=== PATIENT | female | born 1960 | race Caucasian/White ===

== ENCOUNTER → 2020-02-24 | Outpatient (CLI) | payer OTHER, MEDICAID ==
[~2020-02-24] MED LIST: ALBU83IN INH; ASPI81CH2 PO; ATOR40TA75 PO; CLOP75TA2 PO; ENTR1TAB PO; FARX1TAB3 PO; FURO80TA2 PO; GLIP5TAB8 PO; INCR1INH IN; K-TA10TA2 PO; MAGN400T2 PO; METO1TAB32 PO; NITR0.4S14 SL; OXYB5TAB10 PO; PANT40TA29 PO; PRED10PA2 PO; PROAAER10 INH; SYMB16INH INH; SYNT100T PO; VENL75TA2 PO
--- NOTE | 2020-04-12 09:30 | REP ---
RIGHT KNEE SERIES HISTORY: Pain with popping. TECHNIQUE: Five views of the right knee performed. FINDINGS: There is no acute fracture or dislocation. There is mild lateral joint space narrowing with subchondral sclerosis and mild spurring along the lateral joint margin. The patellofemoral joint appears unremarkable. There are mild vascular calcifications posteriorly. There is a [id number] joint effusion. IMPRESSION: Mild degenerative changes lateral joint compartment. [id number]-rk-[id number] joint effusion. MTDD
== END ==
LOC: M RAD 14:54
PROVIDERS: ATTEND Physician Assistant
DX: M25.461 Effusion, right knee (principal); M25.561 Pain in right knee
CPT/HCPCS: 73564; G0463

== ENCOUNTER → 2020-03-05 | Outpatient (REF) | payer MEDICARE, OTHER ==
[2020-03-05 19:38] LABS: APPEARANCE, URINE HAZY (CLEAR); BACTERIA, URINE AUTO 1+ (NEGATIVE); BILIRUBIN, URINE AUTO NEGATIVE (NEGATIVE); BLOOD, URINE BLOOD NEGATIVE (NEGATIVE); COLOR, URINE YELLOW (YELLOW); GLUCOSE, URINE (UA) AUTO 3+ mg/dL (NEGATIVE); KETONE, URINE AUTO TRACE mg/dL (NEGATIVE); LEUKOCYTE ESTERASE, URINE AUTO 1+ (NEGATIVE); NITRITE, URINE AUTO NEGATIVE (NEGATIVE); PROTEIN, URINE AUTO NEGATIVE (NEGATIVE); RBC, URINE AUTO 2 /HPF (0-3); SPECIFIC GRAVITY URINE AUTO 1.024 (1.002-1.035); SQUAMOUS EPITHELIAL CELL UR AU 5 /HPF (0-6); UROBILINOGEN, URINE AUTO 0.2 mg/dL (0.0-2.0); WBC, URINE AUTO 6 /HPF (0-3)
== END ==
LOC: M LAB REF 17:51
PROVIDERS: ATTEND Nurse Practitioner Family
DX: N39.0 Urinary tract infection, site not specified (principal)

== ENCOUNTER → 2020-04-03 | Outpatient (CLI) | payer MEDICARE, OTHER | LOC: M LABSMTC 08:18 | PROVIDERS: ATTEND Anesthesiology | DX: Z01.812 Encounter for preprocedural laboratory examination (principal); Z20.828 Contact with and (suspected) exposure to other viral communicable diseases | CPT/HCPCS: C9803; U0003 ==

== ENCOUNTER → 2020-04-08 | Day surgery (SDC) | payer OTHER, MEDICAID ==
[~2020-04-08] VITALS: Ht 165.1 cm; Wt 71.7 kg
[~2020-04-08] MED LIST changes: +CONRAY-60 60% 50ML VIAL (Q9961) As Ordered ONE; +LIDOCAINE 2% 100MG/5ML SDV (FOR ANES.) As Ordered ONE; +LR 1,000 ML IV ONE; +MIDAZOLAM INJ 2MG/2ML VIAL (J2250 PER 1MG) As Ordered ONE; +ONDANSETRON 4MG/2ML VIAL As Ordered ONE; +ceFAZolin 2 GM/D5W 50 ML IV BAG (J0690 PER 500MG) As Ordered ONE; +ceFAZolin SOD 2 GM in IV 1 EA IV ONE; +dexameTHASONE 4 MG/ML 1ML VIAL (J1100 PER 1MG) As Ordered ONE; +fentaNYL 100 MCG/2 ML INJECTION (J3010) As Ordered ONE; +propofoL 200 MG/20 ML VIAL As Ordered ONE
== END | disposition home or self-care (01) ==
LOC: M SDC 06:05
PROVIDERS: ATTEND Urology
DX: N20.0 Calculus of kidney (principal); Z53.09 Procedure and treatment not carried out because of other contraindication; R42 Dizziness and giddiness; Z91.81 History of falling
CPT/HCPCS: J1100; J2250; J2405; J3010; Q9961

== ENCOUNTER → 2020-04-30 | Outpatient (CLI) | payer OTHER, MEDICAID ==
[~2020-04-30] MED LIST changes: -CONRAY-60 60% 50ML VIAL (Q9961) As Ordered ONE; -LIDOCAINE 2% 100MG/5ML SDV (FOR ANES.) As Ordered ONE; -LR 1,000 ML IV ONE; -MIDAZOLAM INJ 2MG/2ML VIAL (J2250 PER 1MG) As Ordered ONE; -ONDANSETRON 4MG/2ML VIAL As Ordered ONE; -OXYB5TAB10 PO; -ceFAZolin 2 GM/D5W 50 ML IV BAG (J0690 PER 500MG) As Ordered ONE; -ceFAZolin SOD 2 GM in IV 1 EA IV ONE; -dexameTHASONE 4 MG/ML 1ML VIAL (J1100 PER 1MG) As Ordered ONE; -fentaNYL 100 MCG/2 ML INJECTION (J3010) As Ordered ONE; -propofoL 200 MG/20 ML VIAL As Ordered ONE
== END ==
LOC: M LABSMTC 11:33
PROVIDERS: ATTEND Internal Medicine Cardiovascular Disease
DX: Z01.812 Encounter for preprocedural laboratory examination (principal); Z20.828 Contact with and (suspected) exposure to other viral communicable diseases
CPT/HCPCS: C9803; U0003

== ENCOUNTER → 2020-05-19 | Outpatient (CLI) | payer OTHER, MEDICAID ==
[~2020-05-19] MED LIST changes: +OXYB5TAB10 PO
== END ==
LOC: M LABSMTC 13:32
PROVIDERS: ATTEND Anesthesiology
DX: Z01.818 Encounter for other preprocedural examination (principal)
CPT/HCPCS: C9803; U0003

== ENCOUNTER 2020-05-24 07:21 | Day surgery (SDC) | payer OTHER, MEDICAID ==
[~2020-05-24] VITALS: Ht 165.1 cm; Wt 74.8 kg
[~2020-05-24 07:21] MED LIST changes: +LR 1,000 ML IV ONE; -OXYB5TAB10 PO; +ceFAZolin SOD 2 GM in IV 1 EA IV ONE
[2020-05-24] MEDS ORDERED: propofoL 200 MG/20 ML VIAL As Ordered ONE (08:02)
[2020-05-24] MEDS ORDERED: fentaNYL 100 MCG/2 ML INJECTION (J3010) As Ordered ONE (08:02)
[2020-05-24] MEDS ORDERED: ONDANSETRON 4MG/2ML VIAL As Ordered ONE (08:02)
[2020-05-24] MEDS ORDERED: LIDOCAINE 2% 100MG/5ML SDV (FOR ANES.) As Ordered ONE (08:02)
[2020-05-24] MEDS ORDERED: MIDAZOLAM INJ 2MG/2ML VIAL (J2250 PER 1MG) As Ordered ONE (08:02)
[2020-05-24] MEDS ORDERED: dexameTHASONE 4 MG/ML 1ML VIAL (J1100 PER 1MG) As Ordered ONE (08:02)
[2020-05-24] MEDS ORDERED: CONRAY-60 60% 50ML VIAL (Q9961) As Ordered ONE (08:25)
[2020-05-24] MEDS ORDERED: PHENYLephrine HCL 500 MCG/5 ML (100MCG/ML) SYRINGE (J2370) As Ordered ONE (09:25)
[2020-05-24] MEDS ORDERED: ACETAMINOPHEN 1000MG 100ML IV BTL (OFIRMEV) (J0131 PER 10MG) As Ordered ONE (09:47)
[2020-05-24] MEDS ORDERED: OXYB5TAB10 PO (10:05)
--- NOTE | 2020-05-24 10:16 | REP ---
INDICATION: CYSTOSCOPY. COMPARISON: None. TECHNIQUE: 10 seconds of fluoroscopy time is reported. FINDINGS: A sequence of 2 last image hold fluoroscopically obtained spot radiographs of the abdomen document left-sided ureteral cannulation, contrast injection, and double-pigtail stent placement. IMPRESSION: Procedural imaging. <Electronically signed by Reji Connors > 05/24/20 [id number]
[2020-05-24] MEDS ORDERED: oxyCODONE 5MG TAB PO PRN (10:30)
[2020-05-24] MEDS ORDERED: ONDANSETRON 4MG/2ML VIAL IV PRN (10:30)
[2020-05-24] MEDS ORDERED: oxyBUTYnin 5 MG TAB PO PRN (10:30)
[2020-05-24] MEDS ORDERED: fentaNYL 100 MCG/2 ML INJECTION (J3010) IV PRN (10:30)
[2020-05-24] MEDS ORDERED: PERCOCET 5MG/325MG TAB PO PRN (10:30)
[2020-05-24] MEDS ORDERED: LR 1,000 ML IV SCH (10:30)
[2020-05-24 14:00] VITALS: BP 119/58
--- NOTE | 2020-05-25 10:36 | RO ---
DATE OF OPERATION: 05/24/2020 PREOPERATIVE DIAGNOSIS: Obstructing left ureteral stone. POSTOPERATIVE DIAGNOSES: 1. Obstructing left ureteral stone. 2. Meatal stenosis. PROCEDURES PERFORMED: 1. Cystoscopy. 2. Left ureteroscopy with laser lithotripsy and basket extraction of stones. 3. Left retrograde pyelogram with intraoperative interpretation of images. 4. Left ureteral stent placement. 5. Urethral dilation. SURGEON: Daniel Stearns MD CATHETER BUILDER: None. ANESTHESIA: General. OPERATIVE INDICATIONS: This is a 60-year-old female who was found to have obstructing 1.2 cm distal left ureteral stone. She is brought to the operating room today for treatment. DESCRIPTION OF PROCEDURE: The patient was brought to the operating room and general anesthesia induced. Prophylactic antibiotics were infused. She was placed in the dorsal lithotomy position and prepped and draped in usual sterile fashion. At this point I attempted to insert a rigid cystoscope into the urethral meatus but it would not go as the meatus was stenotic. I therefore dilated her urethral meatus to 26-Gabonese using metal sounds. Once this was done I was able to insert the cystoscope into the urethra and into the bladder. A guidewire was advanced up the left collecting system. I then went up the left collecting system with short semi-rigid ureteroscope and in the distal ureter the 1.2 cm stone was seen. The stone was fragmented into the smaller pieces using a 272 micron laser fiber and then all the fragments were removed using a basket. I then examined the more proximal ureter and no additional stones were seen. A retrograde pyelogram was performed and was notable for moderate to severe left hydroureteronephrosis with no extravasation. I then withdrew the ureteroscope back down the ureter and of note in the area where the stone was previously impacted there was a moderate amount of edema. At this point the guidewire was utilized to advance a 6-Gabonese x 22-32 cm JJ ureteral stent up the left collecting system. The wire was removed and there were adequate curls of the stent in the left renal pelvis and in the bladder. The bladder was emptied of all fluids and this marked the conclusion of the procedure. The patient was then taken from the dorsal lithotomy position, awakened from anesthesia and transported to recovery room in stable condition. ESTIMATED BLOOD LOSS: 5 mL. COMPLICATIONS: None. SPECIMENS: Kidney stone fragments. PLAN: I will leave the patients stent in for 3-4 weeks given the moderate amount of edema seen in the ureter. We will then take her stent out in the office. CLAIRE
== END 2020-05-24 14:00 | disposition home or self-care (01) ==
LOC: M SDC 07:21
PROVIDERS: ATTEND Urology
DX: N20.0 Calculus of kidney (principal); I10 Essential (primary) hypertension; I25.10 Atherosclerotic heart disease of native coronary artery without angina pectoris; Z95.0 Presence of cardiac pacemaker; Z98.61 Coronary angioplasty status; E03.9 Hypothyroidism, unspecified; J44.9 Chronic obstructive pulmonary disease, unspecified; F17.218 Nicotine dependence, cigarettes, with other nicotine-induced disorders; I25.2 Old myocardial infarction; E78.5 Hyperlipidemia, unspecified; E11.9 Type 2 diabetes mellitus without complications; Z79.51 Long term (current) use of inhaled steroids; Z79.01 Long term (current) use of anticoagulants; Z79.899 Other long term (current) drug therapy
CPT/HCPCS: 52356; 74420; 82365; 88300; C1769; C2617; J0131; J0690; J1100; J2250; J2370; J2405; J3010; Q9961

== ENCOUNTER → 2020-06-16 | Outpatient (REF) | payer MEDICARE, MEDICAID, OTHER ==
[~2020-06-16] MED LIST changes: -LR 1,000 ML IV ONE; +OXYB5TAB10 PO; -ceFAZolin SOD 2 GM in IV 1 EA IV ONE
== END ==
LOC: M SMT 13:12
PROVIDERS: ATTEND Urology
DX: N39.0 Urinary tract infection, site not specified (principal)

== ENCOUNTER → 2020-09-07 | Outpatient (CLI) | payer OTHER, MEDICAID ==
--- NOTE | 2020-09-07 15:31 | REP ---
INDICATION: COPD, US . COMPARISON: Chest 03/23/2020 TECHNIQUE: Low-dose lung CT screening protocol with 3 mm slices in lung window settings presented. FINDINGS: The lung adler are well inflated. Some minor fibrotic changes in the medial and lateral segment of the right middle lobe and some bronchiectatic changes bilaterally. No pleural effusion, pleural plaque or calcification, parenchymal mass or acute infiltrate. No discrete nodule pr mass. Heart not grossly enlarged. There is now a multilead AICD pacer with leads terminating in the right atrium and right ventricle. IMPRESSION: Lung RADS category 2 benign findings. No evidence of malignancy. Patients with this category of scan have less than 1% chance of malignancy at the time of the examination. For patients at high risk of lung malignancy, annual low-dose screening lung CT recommended. <Electronically signed by Felipe Ugarte > 09/07/20 1521
== END ==
LOC: M RAD 12:42
PROVIDERS: ATTEND Internal Medicine Pulmonary Disease
DX: Z12.2 Encounter for screening for malignant neoplasm of respiratory organs (principal); J44.9 Chronic obstructive pulmonary disease, unspecified; F17.218 Nicotine dependence, cigarettes, with other nicotine-induced disorders; N13.2 Hydronephrosis with renal and ureteral calculous obstruction; I87.8 Other specified disorders of veins

== ENCOUNTER → 2020-09-07 | Outpatient (CLI) | payer OTHER, MEDICAID ==
--- NOTE | 2020-09-07 15:43 | REP ---
INDICATION: HYDRONEPHROSIS, CALCULIS URETRERAL, US . COMPARISON: Comparison CT study March 05, 2020.. TECHNIQUE: Single supine KUB. FINDINGS: Vascular calcification overlies the medial aspect of the upper pole the left kidney. No upper tract urinary calculi are seen. Vascular calcification is observed in the right pelvis. Phleboliths are noted in the pelvis. No evidence of ureteral calculus seen. Bowel gas pattern is normal. Psoas margins and flank stripes are intact. No acute bony abnormality. IMPRESSION: Vascular calcification noted. No urinary tract calculus visible. <Electronically signed by Reji Connors > 09/07/20 [id number]
--- NOTE | 2020-09-07 15:52 | REP ---
INDICATION: HYDRONEPHROSIS, CALCULIS URETERAL, US . COMPARISON: None. TECHNIQUE: Real-time sonographic evaluation of the kidneys is performed. FINDINGS: Renal cortical echogenicity pattern is normal bilaterally and contours are smooth. There is no evidence of hydronephrosis, cyst, mass, or calculus in either kidney. The right kidney measures 9.9 x 4.6 x 4.7 cm. Left renal dimensions are 8.7 x 5.2 x 4.3 cm. The urinary bladder is unremarkable. IMPRESSION: Negative renal ultrasound. <Electronically signed by Isai Ascencio > 09/07/20 [id number]
== END ==
LOC: M RAD 12:36
PROVIDERS: ATTEND Urology
DX: N13.2 Hydronephrosis with renal and ureteral calculous obstruction (principal); I87.8 Other specified disorders of veins

== ENCOUNTER → 2020-09-22 | Outpatient (CLI) | payer OTHER, MEDICAID ==
--- NOTE | 2020-09-22 14:29 | REPMRS ---
Patient History The patient states she has not had a clinical breast exam in over a year. No known family history of cancer. Defibrillator 04/2020 Digital Woman Screen Mammo: September 22, 2020 - Exam #: [id number] Bilateral CC and MLO view(s) were taken. Technologist: Erinn Fortune, Technologist No prior studies available for comparison. FINDINGS: There are scattered fibroglandular densities. The Volpara volumetric breast density category is:B. There has been no change in the appearance of the mammogram from the prior studies. There is a mild amount of scattered fibroglandular density which is fairly symmetric. There is no interval development of dominant mass, architectural distortion, or grouped microcalcification suggestive of malignancy. 3-D tomosynthesis shows no additional findings. Assessment: BI-RADS/ACR category 1 mammogram. Negative Mammogram. Recommendation Routine screening mammogram of both breasts in 1 year (for women over age 40). This patient's [facility] Lifetime Breast Cancer Risk is estimated at 6.5 %. This mammogram was interpreted with the aid of an FDA-approved computer-aided dectection system. Electronically Signed By: Reji Connors MD 09/22/20 [id number]
--- NOTE | 2020-09-22 16:10 | DEXAMM ---
INDICATION: Z13.80 SCREENING FOR OSTEOPOROSIS. COMPARISON: None. TECHNIQUE: Bone density was measured using dual-energy x-ray absorptiometry (DEXA). FINDINGS: AP SPINE L1-L4 BMD 0.952 g/cm2 Young Adult T-Score -2.0 Age Matched Z-Score -0.9. LT FEMUR, TOTAL BMD 0.774 g/cm2 Young Adult T-Score -1.9 Age Matched Z-Score -1.0. LT NECK BMD 0.763 g/cm2 Young Adult T-Score -2.0 Age Matched Z-Score -0.8. RT FEMUR, TOTAL BMD 0.704 g/cm2 Young Adult T-Score -2.4 Age Matched Z-Score -1.6. RT NECK BMD 0.731 g/cm2 Young Adult T-Score -2.2 Age Matched Z-Score -1.0. IMPRESSION: There is low bone density of the spine. There is low bone density of the left hip. There is low bone density of the right hip. FOLLOW-UP: Recommendation for the next bone density exam: 2 years. <Electronically signed by Isai Ascencio > 09/22/20 [id number]
== END ==
LOC: M WHC 13:09
PROVIDERS: ATTEND Family Medicine
DX: Z12.31 Encounter for screening mammogram for malignant neoplasm of breast (principal); Z13.820 Encounter for screening for osteoporosis; I25.118 Atherosclerotic heart disease of native coronary artery with other forms of angina pectoris; I50.22 Chronic systolic (congestive) heart failure; E11.9 Type 2 diabetes mellitus without complications; M85.89 Other specified disorders of bone density and structure, multiple sites

== ENCOUNTER → 2020-09-22 | Outpatient (CLI) | payer OTHER, MEDICAID ==
[2020-09-22 16:05] LABS: BASO # 0.1 10^3/uL (0.0-0.2); BASO % 0.9 % (0.0-1.0); EOS # 0.3 10^3/uL (0.0-0.5); EOS % 3.1 % (0.0-3.0); HEMATOCRIT 38.9 % (36.0-47.0); LYMPH # 2.1 10^3/uL (1.5-5.0); LYMPH % 21.4 % (24.0-44.0); MEAN CORPUSCULAR HEMOGLOBIN 26.7 pg (27.0-33.0); MEAN CORPUSCULAR HGB CONC 30.8 g/dl (32.0-36.5); MEAN CORPUSCULAR VOLUME 86.4 fl (80.0-96.0); MONO # 0.6 10^3/uL (0.0-0.8); MONO % 6.4 % (2.0-8.0); NEUTROPHILS # 6.6 10^3/uL (1.5-8.5); NEUTROPHILS % 67.1 % (36.0-66.0); PLATELET COUNT, AUTOMATED 250 10^3/uL (150-450); WHITE BLOOD COUNT 9.8 10^3/uL (4.0-10.0)
[2020-09-22 16:23] LABS: ALBUMIN 3.6 GM/DL (3.2-5.2); ALT/SGPT 25 U/L (12-78); BILIRUBIN,TOTAL 0.5 MG/DL (0.2-1.0); BLOOD UREA NITROGEN 17 MG/DL (7-18); CALCIUM LEVEL 9.7 MG/DL (8.5-10.1); CARBON DIOXIDE LEVEL 30 MEQ/L (21-32); CHLORIDE LEVEL 104 MEQ/L (98-107); CHOLESTEROL LEVEL 234 MG/DL (<200); CHOLESTEROL RISK RATIO 2.316 (<5); CREATININE FOR GFR 0.98 MG/DL (0.55-1.30); GLOMERULAR FILTRATION RATE > 60.0 (>51); GLUCOSE, FASTING 159 MG/DL (70-100); HDL CHOLESTEROL 101 MG/DL (>40); LDL CHOLESTEROL 105 MG/DL (<100); NON-HDL-C 133 MG/DL; NT-PRO BNP 970 PG/ML (<125); POTASSIUM SERUM 3.9 MEQ/L (3.5-5.1); SODIUM LEVEL 141 MEQ/L (136-145); TOTAL PROTEIN 6.8 GM/DL (6.4-8.2); TRIGLYCERIDES LEVEL 138 MG/DL (<150)
[2020-09-22 18:50] LABS: HEMOGLOBIN A1c 8.9 %
== END ==
LOC: M PLALAB 14:09
PROVIDERS: ATTEND Physician Assistant
DX: I25.118 Atherosclerotic heart disease of native coronary artery with other forms of angina pectoris (principal); I50.22 Chronic systolic (congestive) heart failure; E11.9 Type 2 diabetes mellitus without complications

== ENCOUNTER 2020-09-25 18:24 | Emergency (ER) | payer OTHER, MEDICAID ==
[~2020-09-25] VITALS: Ht 165.1 cm; Wt 72.3 kg
[2020-09-25] MEDS ORDERED: SPIR12.9 (18:43)
[2020-09-25] MEDS ORDERED: COMBAER6 (18:43)
[2020-09-25] MEDS ORDERED: NS 500 ML IV ONE (19:20)
[2020-09-25] MEDS ORDERED: ALBUTEROL 90 MCG/ACT 8GM HFA INHALER INH ONE (19:20)
[2020-09-25] MEDS ORDERED: LEVALBUTEROL HFA 45MCG/ACT 15 GM INHALER INH ONE (19:35)
[2020-09-25 19:46] LABS: BASO # 0.1 10^3/uL (0.0-0.2); BASO % 0.9 % (0.0-1.0); EOS # 0.3 10^3/uL (0.0-0.5); EOS % 2.1 % (0.0-3.0); HEMATOCRIT 42.7 % (36.0-47.0); HEMOGLOBIN 13.3 g/dl (12.0-15.5); LYMPH # 1.7 10^3/uL (1.5-5.0); LYMPH % 13.8 % (24.0-44.0); MEAN CORPUSCULAR HEMOGLOBIN 26.9 pg (27.0-33.0); MEAN CORPUSCULAR HGB CONC 31.1 g/dl (32.0-36.5); MEAN CORPUSCULAR VOLUME 86.3 fl (80.0-96.0); MONO # 0.6 10^3/uL (0.0-0.8); MONO % 4.9 % (2.0-8.0); NEUTROPHILS # 9.4 10^3/uL (1.5-8.5); NEUTROPHILS % 77.5 % (36.0-66.0); PLATELET COUNT, AUTOMATED 288 10^3/uL (150-450); RED BLOOD COUNT 4.95 10^6/uL (4.00-5.40); WHITE BLOOD COUNT 12.1 10^3/uL (4.0-10.0)
[2020-09-25 20:16] LABS: ALBUMIN 3.9 GM/DL (3.2-5.2); ALT/SGPT 32 U/L (12-78); BILIRUBIN,DIRECT 0.2 MG/DL (0.0-0.2); BILIRUBIN,TOTAL 0.8 MG/DL (0.2-1.0); BLOOD UREA NITROGEN 22 MG/DL (7-18); CARBON DIOXIDE LEVEL 27 MEQ/L (21-32); CHLORIDE LEVEL 102 MEQ/L (98-107); CK-MB VALUE MASS 3.3 NG/ML (<3.6); CPK CREATINE PHOSPHOKINASE 138 U/L (26-192); CREATININE FOR GFR 1.17 MG/DL (0.55-1.30); GLOMERULAR FILTRATION RATE 50.6 (>51); GLUCOSE, FASTING 201 MG/DL (70-100); MB/CK RELATIVE INDEX 2.39 (< OR =4); NT-PRO BNP 660 PG/ML (<125); POTASSIUM SERUM 4.3 MEQ/L (3.5-5.1); SODIUM LEVEL 138 MEQ/L (136-145); TOTAL PROTEIN 7.8 GM/DL (6.4-8.2); TROPONIN I < 0.02 NG/ML (< 0.10)
[2020-09-25 20:45] VITALS: BP 120/66
--- NOTE | 2020-09-25 20:48 | REPVR ---
PROCEDURE INFORMATION: Exam: XR Left Ribs Exam date and time: 09/25/2020 7:19 PM Age: 60 years old Clinical indication: Chest pain TECHNIQUE: Imaging protocol: XR Left ribs. Views: 2 views. COMPARISON: LOW DOSE LUNG SCREENING CT 09/07/2020 12:52 PM FINDINGS: Tubes, catheters and devices: A left subclavian pacemaker device is noted with leads projecting over the expected locations of the right atrium, right ventricle, and left ventricular epicardial vein. Bones/joints: There is no fracture or dislocation of the left ribs. Soft tissues: Unremarkable. IMPRESSION: No fracture or dislocation of the left ribs. Electronically signed by: Amandeep Pierce On 09/25/2020 20:47:54 PM
--- NOTE | 2020-09-25 20:48 | REPVR ---
PROCEDURE INFORMATION: Exam: XR Chest Exam date and time: 09/25/2020 7:19 PM Age: 60 years old Clinical indication: Chest pain TECHNIQUE: Imaging protocol: XR of the chest Views: 2 views. COMPARISON: LOW DOSE LUNG SCREENING CT 09/07/2020 12:52 PM FINDINGS: Tubes, catheters and devices: A left subclavian pacemaker device is noted with leads projecting over the expected locations of the right atrium, right ventricle, and left ventricular epicardial vein. Lungs: Unremarkable. No consolidation. No pulmonary edema. Pleural spaces: Unremarkable. No pleural effusion. No pneumothorax. Heart/Mediastinum: Unremarkable. No cardiomegaly. Bones/joints: Unremarkable. IMPRESSION: No acute findings. Electronically signed by: Amandeep Pierce On 09/25/2020 20:47:49 PM
[2020-09-25] MEDS ORDERED: PRED50TA PO (21:19)
--- NOTE | 2020-09-26 09:39 | ECGEPIP ---
[facility] - ED Test Date: 2020-09-25 Pat Name: AILIN LNOGO Department: Room: - Gender: Female Gis Geographer: LAN : 1960 Requested By: NATALY Yun PA-C Order Number: [id number] Reading MD: Ba Sanchez Measurements Intervals [place] Rate: 121 P: 70 GA: 152 QRS: 70 QRSD: 126 T: 41 QT: 326 QTc: 462 Interpretive Statements Sinus tachycardia Right bundle branch block BASELINE ARTIFACT AFFECTS INTERPRETATION NO PRIORS FOR COMPARISON Electronically Signed on 09-26-2020 9:38:54 EDT by Ba Sanchez
== END 2020-09-25 21:48 | disposition left against medical advice (07) ==
LOC: M ED 18:24
DX: J44.1 Chronic obstructive pulmonary disease with (acute) exacerbation (principal); I50.9 Heart failure, unspecified; E11.9 Type 2 diabetes mellitus without complications; I11.0 Hypertensive heart disease with heart failure; K21.9 Gastro-esophageal reflux disease without esophagitis; E03.9 Hypothyroidism, unspecified; Z79.899 Other long term (current) drug therapy; Z79.890 Hormone replacement therapy; Z79.82 Long term (current) use of aspirin; Z79.01 Long term (current) use of anticoagulants; F17.210 Nicotine dependence, cigarettes, uncomplicated

== ENCOUNTER → 2020-10-18 | Outpatient (CLI) | payer OTHER, MEDICAID ==
[~2020-10-18] MED LIST changes: +COMBAER6; +PRED50TA PO; +SPIR12.9
[2020-10-18 15:13] LABS: BLOOD UREA NITROGEN 32 MG/DL (7-18); CALCIUM LEVEL 9.6 MG/DL (8.5-10.1); CARBON DIOXIDE LEVEL 32 MEQ/L (21-32); CHLORIDE LEVEL 101 MEQ/L (98-107); CREATININE FOR GFR 0.94 MG/DL (0.55-1.30); GLOMERULAR FILTRATION RATE > 60.0 (>51); GLUCOSE, FASTING 113 MG/DL (70-100); NT-PRO BNP 626 PG/ML (<125); POTASSIUM SERUM 3.5 MEQ/L (3.5-5.1); SODIUM LEVEL 139 MEQ/L (136-145)
== END ==
LOC: M PLALAB 13:30
PROVIDERS: ATTEND Physician Assistant
DX: I50.42 Chronic combined systolic (congestive) and diastolic (congestive) heart failure (principal)

== ENCOUNTER 2020-11-30 21:32 | Emergency (ER) | payer OTHER, MEDICAID ==
[~2020-11-30] VITALS: Ht 165.1 cm; Wt 77.4 kg
[2020-11-30 22:08] LABS: VENOUS BASE EXCESS 2.1 (-2.0-2.0); VENOUS HCO3 26.5 MEQ/L (23.0-27.0); VENOUS O2 SATURATION 74.1 % (60.0-80.0); VENOUS PARTIAL PRESSURE CO2 40.5 mmHg (38.0-50.0); VENOUS PARTIAL PRESSURE O2 38.2 mmHg (30.0-50.0); VENOUS PH 7.434 UNITS (7.330-7.430); VENOUS STANDARD HCO3 25.8 MEQ/L; VENOUS TOTAL CO2 27.8 MEQ/L (24.0-28.0)
[2020-11-30 22:13] LABS: BASO # 0.1 10^3/uL (0.0-0.2); BASO % 0.8 % (0.0-1.0); EOS # 0.2 10^3/uL (0.0-0.5); EOS % 1.1 % (0.0-3.0); HEMATOCRIT 42.9 % (36.0-47.0); HEMOGLOBIN 13.6 g/dl (12.0-15.5); LYMPH # 2.5 10^3/uL (1.5-5.0); MEAN CORPUSCULAR HEMOGLOBIN 27.4 pg (27.0-33.0); MEAN CORPUSCULAR HGB CONC 31.7 g/dl (32.0-36.5); MEAN CORPUSCULAR VOLUME 86.5 fl (80.0-96.0); MONO # 0.8 10^3/uL (0.0-0.8); MONO % 5.8 % (2.0-8.0); NEUTROPHILS # 9.7 10^3/uL (1.5-8.5); NEUTROPHILS % 72.3 % (36.0-66.0); PLATELET COUNT, AUTOMATED 288 10^3/uL (150-450); RED BLOOD COUNT 4.96 10^6/uL (4.00-5.40); WHITE BLOOD COUNT 13.3 10^3/uL (4.0-10.0)
[2020-11-30] MEDS ORDERED: methylPREDNISolone 125MG 2ML VIAL IV ONE (22:20)
[2020-11-30] MEDS ORDERED: NS 1,000 ML IV ONE (22:25)
--- NOTE | 2020-11-30 22:28 | REPVR ---
PROCEDURE INFORMATION: Exam: XR Chest Exam date and time: 11/30/2020 9:49 PM Age: 60 years old Clinical indication: Shortness of breath and other: Dka TECHNIQUE: Imaging protocol: XR of the chest. Views: 1 view. COMPARISON: 1. SD Chest, 2 view PA, Lat 2020-09-25 19:43 2. CR RIBS-UNI W-O PA CHEST 2020-09-25 19:43 3. LOW DOSE LUNG SCREENING CT 2020-09-07 12:52 FINDINGS: Tubes, catheters and devices: AICD/Pacemaker device is present, and its leads are in appropriate position. Lungs: Right middle lobe atelectasis. Pleural spaces: Unremarkable. No pleural effusion. No pneumothorax. Heart/Mediastinum: Unremarkable. No cardiomegaly. Bones/joints: Unremarkable. IMPRESSION: Right middle lobe atelectasis. Electronically signed by: Daryl Martini On 11/30/2020 22:28:03 PM
[2020-11-30 22:31] LABS: HEMOGLOBIN A1c 9.1 %
[2020-11-30 22:41] LABS: ACETONE/KETONE 1.52 MG/DL (<2.81); ALBUMIN 3.9 GM/DL (3.2-5.2); ALT/SGPT 31 U/L (12-78); BILIRUBIN,DIRECT 0.2 MG/DL (0.0-0.2); BILIRUBIN,TOTAL 0.6 MG/DL (0.2-1.0); BLOOD UREA NITROGEN 28 MG/DL (7-18); CALCIUM LEVEL 9.7 MG/DL (8.5-10.1); CARBON DIOXIDE LEVEL 26 MEQ/L (21-32); CHLORIDE LEVEL 96 MEQ/L (98-107); CK-MB VALUE MASS 2.2 NG/ML (<3.6); CPK CREATINE PHOSPHOKINASE 100 U/L (26-192); CREATININE FOR GFR 1.28 MG/DL (0.55-1.30); GLOMERULAR FILTRATION RATE 45.6 (>51); GLUCOSE, FASTING 400 MG/DL (70-100); LIPASE 141 U/L (73-393); MAGNESIUM LEVEL 2.1 MG/DL (1.8-2.4); NT-PRO BNP 448 PG/ML (<125); SODIUM LEVEL 133 MEQ/L (136-145); TOTAL PROTEIN 7.5 GM/DL (6.4-8.2); TROPONIN I < 0.02 NG/ML (< 0.10)
[2020-11-30] MEDS: COMBIVENT RESPIMAT 100-20MCG INHALER 4GM INH SCH ×3 (22:50→23:33)
[2020-11-30 22:54] LABS: OSMOLALITY SERUM 307 MOSM/KG (275-295)
[2020-12-01 00:45] VITALS: BP 146/92
--- NOTE | 2020-12-01 19:39 | ECGEPIP ---
[facility] - ED Test Date: 2020-11-30 Pat Name: AILIN LONGO Department: Room: - Gender: Female Taker Out: STEVE : 1960 Requested By: JOSE E YANG Order Number: [id number] Reading MD: Ba Sanchez Measurements Intervals [place] Rate: 114 P: 67 OR: 172 QRS: 63 QRSD: 128 T: 39 QT: 350 QTc: 482 Interpretive Statements Sinus tachycardia Right bundle branch block BASELINE ARTIFACT AFFECTS INTERPRETATION SIMILAR TO 09/25/20 Electronically Signed on 12-01-2020 19:39:13 EDT by Ba Sanchez
== END 2020-12-01 01:46 | disposition left against medical advice (07) ==
LOC: M ED 21:32
DX: R06.02 Shortness of breath (principal); E11.65 Type 2 diabetes mellitus with hyperglycemia; J44.9 Chronic obstructive pulmonary disease, unspecified; I25.10 Atherosclerotic heart disease of native coronary artery without angina pectoris; Z95.0 Presence of cardiac pacemaker; Z79.899 Other long term (current) drug therapy; Z79.01 Long term (current) use of anticoagulants; Z79.890 Hormone replacement therapy; Z79.82 Long term (current) use of aspirin; F17.210 Nicotine dependence, cigarettes, uncomplicated
CPT/HCPCS: 71045; 80048; 80076; 81001; 82010; 82550; 82553; 82803; 83036; 83690; 83735; 83880; 83930; 84484; 85025; 87798; 93005; 93041; 94640; 96361; 96374; 99285; J2930

== ENCOUNTER → 2020-12-22 | Outpatient (CLI) | payer OTHER, MEDICAID ==
[2020-12-22 16:59] LABS: BLOOD UREA NITROGEN 15 MG/DL (7-18); CALCIUM LEVEL 9.6 MG/DL (8.5-10.1); CARBON DIOXIDE LEVEL 28 MEQ/L (21-32); CHLORIDE LEVEL 102 MEQ/L (98-107); CREATININE FOR GFR 0.97 MG/DL (0.55-1.30); GLOMERULAR FILTRATION RATE > 60.0 (>51); GLUCOSE, FASTING 214 MG/DL (70-100); POTASSIUM SERUM 4.9 MEQ/L (3.5-5.1); SODIUM LEVEL 138 MEQ/L (136-145)
[2020-12-22 20:50] LABS: HEMOGLOBIN A1c 8.5 %
== END ==
LOC: M PLALAB 12:15
PROVIDERS: ATTEND Physician Assistant
DX: E11.65 Type 2 diabetes mellitus with hyperglycemia (principal)

== ENCOUNTER → 2020-12-28 | Outpatient (CLI) | payer OTHER, MEDICAID ==
--- NOTE | 2020-12-29 03:25 | REPPI ---
INDICATION: M54.5 LOW BACK PAIN AFTER LIFTING AIR CONDITIONER COMPARISON: None. TECHNIQUE: AP, lateral, flexion/extension, bilateral oblique, and coned-down views. FINDINGS: Generalized osteopenia and moderate to advanced degenerative changes include endplate sclerosis, osteophytosis, facet hypertrophy and disc space narrowing. Findings most pronounced at the L5-S1 level and to a lesser extent the L2-3 and L3-4 levels. No evidence for acute fracture or dislocation. Alignment is maintained on flexion/extension views. IMPRESSION: Osteopenia and moderate to advanced degenerative changes. <Electronically signed by Felix Morel > 12/29/20 0329
== END ==
LOC: M PLAIMG 10:05
PROVIDERS: ATTEND Physician Assistant
DX: M51.36 Other intervertebral disc degeneration, lumbar region (principal); M51.37 Other intervertebral disc degeneration, lumbosacral region; M85.88 Other specified disorders of bone density and structure, other site; M54.5 Low back pain

== ENCOUNTER → 2021-01-28 | Outpatient (CLI) | payer OTHER, MEDICAID ==
[2021-01-28 17:15] LABS: BASO # 0.1 10^3/uL (0.0-0.2); BASO % 1.1 % (0.0-1.0); EOS # 0.4 10^3/uL (0.0-0.5); EOS % 3.7 % (0.0-3.0); HEMATOCRIT 43.4 % (36.0-47.0); HEMOGLOBIN 13.7 g/dl (12.0-15.5); LYMPH % 29.4 % (24.0-44.0); MEAN CORPUSCULAR HEMOGLOBIN 28.4 pg (27.0-33.0); MEAN CORPUSCULAR HGB CONC 31.6 g/dl (32.0-36.5); MEAN CORPUSCULAR VOLUME 89.9 fl (80.0-96.0); MONO # 0.9 10^3/uL (0.0-0.8); MONO % 8.9 % (2.0-8.0); NEUTROPHILS # 5.7 10^3/uL (1.5-8.5); NEUTROPHILS % 56.1 % (36.0-66.0); PLATELET COUNT, AUTOMATED 239 10^3/uL (150-450); RED BLOOD COUNT 4.83 10^6/uL (4.00-5.40); WHITE BLOOD COUNT 10.2 10^3/uL (4.0-10.0)
[2021-01-28 17:48] LABS: ALBUMIN 3.7 GM/DL (3.2-5.2); ALT/SGPT 29 U/L (12-78); BILIRUBIN,TOTAL 0.6 MG/DL (0.2-1.0); BLOOD UREA NITROGEN 18 MG/DL (7-18); CALCIUM LEVEL 9.6 MG/DL (8.5-10.1); CARBON DIOXIDE LEVEL 27 MEQ/L (21-32); CHLORIDE LEVEL 109 MEQ/L (98-107); CHOLESTEROL LEVEL 201 MG/DL (<200); CREATININE FOR GFR 0.79 MG/DL (0.55-1.30); FREE T4 1.23 NG/DL (0.76-1.46); GLOMERULAR FILTRATION RATE > 60.0 (>51); GLUCOSE, FASTING 135 MG/DL (70-100); HDL CHOLESTEROL 100 MG/DL (>40); LDL CHOLESTEROL 65 MG/DL (<100); NON-HDL-C 101 MG/DL; POTASSIUM SERUM 4.3 MEQ/L (3.5-5.1); SODIUM LEVEL 144 MEQ/L (136-145); THYROID STIMULATING HORMONE 0.285 uIU/ML (0.358-3.740); TOTAL PROTEIN 7.2 GM/DL (6.4-8.2); TRIGLYCERIDES LEVEL 182 MG/DL (<150)
== END ==
LOC: M PLALAB 15:06
PROVIDERS: ATTEND Physician Assistant
DX: E11.65 Type 2 diabetes mellitus with hyperglycemia (principal); J44.9 Chronic obstructive pulmonary disease, unspecified; I50.42 Chronic combined systolic (congestive) and diastolic (congestive) heart failure

== ENCOUNTER → 2021-01-28 | Outpatient (CLI) | payer OTHER, MEDICAID ==
[2021-01-28 17:44] LABS: BLOOD UREA NITROGEN 20 MG/DL (7-18); CALCIUM LEVEL 9.2 MG/DL (8.5-10.1); CARBON DIOXIDE LEVEL 30 MEQ/L (21-32); CHLORIDE LEVEL 107 MEQ/L (98-107); CREATININE FOR GFR 0.81 MG/DL (0.55-1.30); GLOMERULAR FILTRATION RATE > 60.0 (>51); GLUCOSE, FASTING 139 MG/DL (70-100); NT-PRO BNP 247 PG/ML (<125); POTASSIUM SERUM 4.2 MEQ/L (3.5-5.1); SODIUM LEVEL 140 MEQ/L (136-145)
== END ==
LOC: M PLALAB 15:07
PROVIDERS: ATTEND Physician Assistant
DX: I50.42 Chronic combined systolic (congestive) and diastolic (congestive) heart failure (principal)

== ENCOUNTER → 2021-05-19 | Outpatient (CLI) | payer OTHER, MEDICAID ==
[2021-05-19 17:52] LABS: BASO # 0.1 10^3/uL (0.0-0.2); BASO % 0.6 % (0.0-1.0); EOS # 0.1 10^3/uL (0.0-0.5); EOS % 0.7 % (0.0-3.0); HEMATOCRIT 42.2 % (36.0-47.0); LYMPH # 1.6 10^3/uL (1.5-5.0); LYMPH % 15.5 % (24.0-44.0); MEAN CORPUSCULAR HEMOGLOBIN 27.8 pg (27.0-33.0); MEAN CORPUSCULAR HGB CONC 30.8 g/dl (32.0-36.5); MEAN CORPUSCULAR VOLUME 90.4 fl (80.0-96.0); MONO # 0.3 10^3/uL (0.0-0.8); MONO % 3.2 % (2.0-8.0); NEUTROPHILS # 8.3 10^3/uL (1.5-8.5); NEUTROPHILS % 78.8 % (36.0-66.0); PLATELET COUNT, AUTOMATED 262 10^3/uL (150-450); RED BLOOD COUNT 4.67 10^6/uL (4.00-5.40); WHITE BLOOD COUNT 10.6 10^3/uL (4.0-10.0)
[2021-05-19 18:13] LABS: HEMOGLOBIN A1c 8.6 %
[2021-05-19 18:29] LABS: ALBUMIN 3.5 GM/DL (3.2-5.2); ALT/SGPT 41 U/L (12-78); BILIRUBIN,TOTAL 0.6 MG/DL (0.2-1.0); BLOOD UREA NITROGEN 15 MG/DL (7-18); CALCIUM LEVEL 9.7 MG/DL (8.5-10.1); CARBON DIOXIDE LEVEL 30 MEQ/L (21-32); CHLORIDE LEVEL 100 MEQ/L (98-107); CHOLESTEROL LEVEL 263 MG/DL (<200); CHOLESTEROL RISK RATIO 2.504 (<5); FREE T4 1.31 NG/DL (0.76-1.46); GLOMERULAR FILTRATION RATE > 60.0 (>51); GLUCOSE, FASTING 226 MG/DL (70-100); HDL CHOLESTEROL 105 MG/DL (>40); LDL CHOLESTEROL 106 MG/DL (<100); NON-HDL-C 158 MG/DL; POTASSIUM SERUM 5.1 MEQ/L (3.5-5.1); SODIUM LEVEL 137 MEQ/L (136-145); THYROID STIMULATING HORMONE 0.247 uIU/ML (0.358-3.740); TOTAL PROTEIN 7.1 GM/DL (6.4-8.2); TRIGLYCERIDES LEVEL 259 MG/DL (<150)
== END ==
LOC: M PLALAB 15:04
PROVIDERS: ATTEND Physician Assistant
DX: E11.40 Type 2 diabetes mellitus with diabetic neuropathy, unspecified (principal); J44.9 Chronic obstructive pulmonary disease, unspecified; E03.9 Hypothyroidism, unspecified; I50.42 Chronic combined systolic (congestive) and diastolic (congestive) heart failure

== ENCOUNTER → 2021-05-19 | Outpatient (CLI) | payer OTHER, MEDICAID ==
[2021-05-19 18:27] LABS: BLOOD UREA NITROGEN 16 MG/DL (7-18); CALCIUM LEVEL 9.9 MG/DL (8.5-10.1); CARBON DIOXIDE LEVEL 28 MEQ/L (21-32); CHLORIDE LEVEL 100 MEQ/L (98-107); CREATININE FOR GFR 0.95 MG/DL (0.55-1.30); GLOMERULAR FILTRATION RATE > 60.0 (>51); GLUCOSE, FASTING 235 MG/DL (70-100); MAGNESIUM LEVEL 2.2 MG/DL (1.8-2.4); NT-PRO BNP 309 PG/ML (<125); SODIUM LEVEL 137 MEQ/L (136-145)
== END ==
LOC: M PLALAB 15:07
PROVIDERS: ATTEND Physician Assistant
DX: I50.42 Chronic combined systolic (congestive) and diastolic (congestive) heart failure (principal)

== ENCOUNTER 2022-07-21 14:35 | Emergency (ER) | payer MEDICARE, MEDICAID ==
[~2022-07-21] VITALS: Ht 162.6 cm; Wt 74.6 kg
[~2022-07-21 14:35] MED LIST changes: -DOXY-443 PO; -PRED10TA2 PO
[2022-07-21] MEDS ORDERED: methylPREDNISolone 125MG 2ML VIAL IV ONE (16:15)
[2022-07-21] MEDS: ALBUTEROL 90 MCG/ACT 8GM HFA INHALER INH SCH ×3 (16:52→16:54)
[2022-07-21 17:03] LABS: HEMATOCRIT 37.6 % (36.0-47.0); HEMOGLOBIN 11.6 g/dl (12.0-15.5); MEAN CORPUSCULAR HEMOGLOBIN 26.9 pg (27.0-33.0); MEAN CORPUSCULAR HGB CONC 30.9 g/dl (32.0-36.5); PLATELET COUNT, AUTOMATED 271 10^3/uL (150-450); RED BLOOD COUNT 4.32 10^6/uL (4.00-5.40); WHITE BLOOD COUNT 9.4 10^3/uL (4.0-10.0)
[2022-07-21] MEDS ORDERED: PRED10TA2 PO (17:38)
[2022-07-21] MEDS ORDERED: DOXY-443 PO (17:38)
[2022-07-21 18:12] VITALS: BP 125/65
== END 2022-07-21 18:14 | disposition home or self-care (01) ==
LOC: M ED 14:35
DX: J44.9 Chronic obstructive pulmonary disease, unspecified (principal); I25.10 Atherosclerotic heart disease of native coronary artery without angina pectoris; E11.9 Type 2 diabetes mellitus without complications; E03.9 Hypothyroidism, unspecified; F17.200 Nicotine dependence, unspecified, uncomplicated; Z79.82 Long term (current) use of aspirin; Z79.84 Long term (current) use of oral hypoglycemic drugs; Z79.890 Hormone replacement therapy; Z79.899 Other long term (current) drug therapy
CPT/HCPCS: 71046; 71271; 80047; 85027; 87486; 87581; 87633; 87798; 93005; 94640; 96374; 99284; J2930

== ENCOUNTER → 2022-07-21 | Outpatient (CLI) | payer MEDICARE, MEDICAID ==
[~2022-07-21] MED LIST changes: +ALBU2.5V10 INH; -ALBU83IN INH; +DOXY-443 PO; +PRED10TA2 PO
== END ==
LOC: M RAD 13:57
PROVIDERS: ATTEND Internal Medicine Pulmonary Disease
DX: F17.218 Nicotine dependence, cigarettes, with other nicotine-induced disorders (principal)